=== PATIENT | male | born 2005 | race Caucasian/White ===

== ENCOUNTER 2024-04-12 11:02 | Emergency (ER) | payer OTHER, SELFPAY ==
[2024-04-12 11:44] VITALS: BP 127/71; PULSE 62; RESP 20; TEMP 37; O2SAT 99; BMI 22.4
--- NOTE | 2024-04-12 11:55 | ED_ITS ---
HPI - General Adult General Chief complaint: Laceration/Wound Stated complaint: RT thumb laceration at work Time Seen by Provider: 04/12/24 11:03 History of Present Illness HPI narrative: Patient is a 19-year-old male works at a [employer] and cut the back of his thumb on some sharp metal. He thinks he is up-to-date on tetanus but we will confirm. He is otherwise healthy. He has had no prior injuries to this area. He has got full range of motion of his thumb. This is on the left. Bleeding is controlled. Related Data Home Medications ?Medication ?Instructions ?Recorded ?Confirmed No Known Home Medications 04/12/24 04/12/24 Allergies Allergy/AdvReac Type Severity Reaction Status Date / Time No Known Drug Allergies Allergy Verified 04/12/24 11:44 Review of Systems Status of ROS: Reports: 6 or more systems reviewed and unremarkable except as noted in History and below [facility] Social History Smoking Status: Never smoker Second hand tobacco smoke exposure: No How often do you have a drink containing alcohol: never How often do you have six or more drinks on one occasion: Never AUDIT-C Alcohol total score: 0 Non-prescribed substance use: denies use service: No Exam Narrative: Exam Narrative: Objective: Patient's vital signs are within normal limits His left thumb shows full range of motion flexion extension at the IP joint He has got a laceration just distal to the joint that is superficial and tangential. It is less than cm long. No deep neurovascular or tendon involvement. As mention Const: Vital Signs, click to edit/add: Vital Signs - 24 hr 04/12/24 11:44 Temperature 98.6 F Pulse Rate [Pulse Oximeter] 62 Respiratory Rate 20 Blood Pressure [Ri ght Upper Arm] 127/71 Pulse Oximetry 99 Oxygen Delivery Me thod Room Air Course Vital Signs Vital signs: Initial Vital Signs Temperature 98.6 F 04/12/24 11:44 Temperature Source Temporal Artery Scan 04/12/24 11:44 Pulse Rate 62 04/12/24 11:44 Respiratory Rate 20 04/12/24 11:44 Blood Pressure 127/71 04/12/24 11:44 Blood Pressure Mean 89 04/12/24 11:44 Pulse Oximetry 99 04/12/24 11:44 Oxygen Delivery Method Room Air 04/12/24 11:44 Vital Signs Temperature 98.6 F 04/12/24 11:44 Pulse Rate 62 04/12/24 11:44 Respiratory Rate 20 04/12/24 11:44 Blood Pressure 127/71 04/12/24 11:44 Pulse Oximetry 99 04/12/24 11:44 Oxygen Delivery Method Room Air 04/12/24 11:44 Temperature 98.6 F 04/12/24 11:44 Pulse Rate 62 04/12/24 11:44 Respiratory Rate 20 04/12/24 11:44 Blood Pressure 127/71 04/12/24 11:44 Pulse Oximetry 99 04/12/24 11:44 Oxygen Delivery Method Room Air 04/12/24 11:44 Medications Administered Medications: Discontinued Medications Generic Name Dose Route Start Last Admin Trade Name Freq PRN Reason Stop Dose Admin Diphtheria/Tetanus/Acell Pertussis 0.5 ml 04/12/24 12:00 04/12/24 12:10 Tetanus/Diphth/Pertussis 0.5 Ml Syringe IM 04/12/24 12:01 0.5 ml .ONCE ONE Administration Medical Decision Making MDM Narrative Medical decision making narrative: [age] year white male with a metal cut to the superficial to the left thumb dorsum. Closed with Dermabond after sterile scrub and cleansing. He tolerated this well and was good skin edge approximation good hemostasis he has good range of motion of the thumb as mention flexion extension at the IP joint. Recommend keep it dry for the next 2to 3 days light activity. May shower bathe after 3 days as normal. Watch for redness or infection. Will double check on his tetanus status. Discharge Plan Discharge Clinical Impression: Laceration Patient Disposition: Home, Self-Care Condition: Improved Additional Instructions: Keep area dry for 3 days, then may bathe or shower as normal. Would try and reduce activity in the hand for the little next few days. Return if problems or concerns watch for redness or infection. Activity Level: Light activity Discharge Diet: Regular Prescriptions: No Action No Known Home Medications Stand Alone Forms: MyHealth Info Instructions
[2024-04-12] MEDS: TETANUS/DIPHTH/PERTUSSIS 0.5 ML SYRINGE IM (12:10)
== END 2024-04-12 12:25 | disposition home or self-care (01) ==
LOC: ED 12:18
PROVIDERS: Emergency Provider Family Medicine; Visit Provider Family Medicine
DX: S61.011A Laceration without foreign body of right thumb without damage to nail, initial encounter (principal); W26.9XXA Contact with unspecified sharp object(s), initial encounter; Z23 Encounter for immunization
CPT/HCPCS: 12001; 90471; 90715; 99283; 99284